=== PATIENT | female | born 1975 | race Caucasian/White ===

== ENCOUNTER → 2017-11-13 | Outpatient (CLI) | payer BC ==
[~2017-11-13] MED LIST: ALPR0.5T7 PO; HYDR25TA4 PO; METO-351 PO; NALT1TAB PO; PSEU60TA84 PO
--- NOTE | 2017-11-13 13:37 | Diagnostic Imaging Report ---
Indication: Routine screening. Comparison is made with prior exam from 10/17/2008. The current study was also evaluated with a Computer Aided Detection (CAD) system. Both breasts remain heterogeneously dense, limiting the sensitivity of mammography. The overall parenchymal pattern is stable. Intramammary lymph node upper outer left breast is noted. No spiculated mass or malignant appearing microcalcifications are seen. There are benign-appearing calcifications. The axillae are unremarkable. Impression: BI-RADS category 2. No mammographic features suspicious for malignancy are identified. ACR BI-RADS Category 2: Benign findings. Result letter will be mailed to the patient. Note: At least 10% of breast cancer is not imaged by mammography. Dictated by: Dictated on workstation # [id number]
== END ==
LOC: RAD 10:25
PROVIDERS: ATTEND Obstetrics & Gynecology
DX: Z12.31 Encounter for screening mammogram for malignant neoplasm of breast (principal)
CPT/HCPCS: 77067

== ENCOUNTER 2018-01-08 21:01 | Emergency (ER) | payer BC ==
[~2018-01-08] VITALS: Ht 160 cm; Wt 77.1 kg
[2018-01-08] MEDS ORDERED: ALPRAZolam 0.25 MG (XANAX) TAB PO ONE (21:50)
--- NOTE | 2018-01-08 21:50 | ED General ---
General Chief Complaint: Psych/Social Disorder Stated Complaint: BLOOD PRESSURE HIGH AND LOW,FEELS WEIRD,LIPS NUMB Nursing Triage Note: PT TO ED 5 W/ C/O NUMBNESS TO LIPS, [place] ET LOW BLOOD PRESSURE ONSET THIS AFTERNOON AFTER DRINKING A KARINA AT [facility]". PT REPORTS HX OF ANXIETY BUT STATES "I DON'T THINK THIS IS ANXIETY". Nursing Sepsis Screen: No Definite Risk History of Present Illness Date Seen by Provider: Jan 08, 2018 Time Seen by Provider: 21:30 Initial Comments 42-year-old female reports headache that began approximately 2 hours ago, she reports it is now resolved. Hypotension per her home monitor, 90s/50s. No chest pain, palpitations or vertigo. Numbness and tingling in her lips. Coldness in her hands. She has a history of anxiety, she was recently resumed on Zoloft because she was taking increased number of Xanax per day. She is also on metoprolol and Ambien. She got up very early this morning to drive to [place] and pick family up at the airport. She denies being under increased stress. She does report recent mild weight loss. She denies any illicit drug use. She does report having one karina today, she does not drink alcohol regularly. She denies any history of thyroid disorder. Timing/Duration: 1-3 Hours Severity: Mild Associated Systoms: No Chest Pain, No Cough, No Diaphoresis, Fever/Chills, Headaches, No Loss of Appetite, Malaise, No Nausea/Vomiting, No Rash, No Seizure , No Shortness of Air, No Syncope, No Weakness Allergies and Home Medications Allergies Coded Allergies: Penicillins (Verified Allergy, Unknown, 07/09/16) Home Medications Alprazolam 0.5 Mg Tablet, 0.5 MG PO TID PRN for ANXIETY, (Reported) Metoprolol Succinate 25 Mg Tab.er.24h, 25 MG PO DAILY Prescribed by: CANDICE ESPOSITO on 07/10/16 1228 Patient Home Medication List Home Medication List Reviewed: Yes Constitutional: see HPI, chills, malaise Respiratory: no symptoms reported, see HPI, No cough, No dyspnea on exertion, No short of breath Cardiovascular: no symptoms reported, see HPI, No palpitations, No syncope Gastrointestinal: no symptoms reported, see HPI Skin: change in color Past Aofvjeh-Gfwefr-Jocwrh Hx Patient Social History Alcohol Use: Occasionally Uses Recreational Drug Use: No Smoking Status: Never a Smoker Recent Foreign Travel: No Contact w/Someone Who Travel: No Recent Infectious Disease Expo: No Recent Hopitalizations: No Physical Abuse: No Sexual Abuse: No Mistreated: No Fear: No Surgeries History of Surgeries: Yes (LAP BAND, UTERINE ABLATION) Surgeries: Section, Tonsillectomy, Tubal Ligation Respiratory History of Respiratory Disorde: No Cardiovascular History of Cardiac Disorders: Yes Cardiac Disorders: Chronic Edema/Swelling, Hypertension Neurological History of Neurological Disord: No Reproductive System Hx Reproductive Disorders: No Sexually Transmitted Disease: No HIV/AIDS: No Female Reproductive Disorders: Denies [employer] History: Tubal Ligation Gastrointestinal History of Gastrointestinal Di: No (LAP BAND) Musculoskeletal History of Musculoskeletal Dis: No Endocrine History of Endocrine Disorders: No Cancer History of Cancer: No Psychosocial History of Psychiatric Problem: Yes Behavioral Health Disorders: Anxiety Suicide Risk Score: 0 Integumentary History of Skin or Integumenta: No Blood Transfusions History of Blood Disorders: No Family Medical History Significant Family History: No Pertinent Family Hx Physical Exam Vital Signs Vital Signs - First Documented 01/08/18 21:08 Temp 97.1 Pulse 95 Resp 20 B/P (MAP) 153/109 (124) Pulse Ox 98 O2 Delivery Room Air Capillary Refill : Less Than 3 Seconds General Appearance: No Apparent Distress, Anxious Eyes: Bilateral Eye Normal Inspection, Bilateral Eye PERRL, Bilateral Eye EOMI HEENT: PERRL/EOMI, TMs Normal, Normal ENT Inspection, Pharynx Normal Neck: Full Range of Motion, Normal Inspection, Non Tender, Supple Respiratory: Chest Non Tender, Lungs Clear, Normal Breath Sounds Cardiovascular: Regular Rate, Rhythm, No Edema, Normal Peripheral Pulses Gastrointestinal: Normal Bowel Sounds, Non Tender, Soft Back: Normal Inspection, No CVA Tenderness, No Vertebral Tenderness Extremity: Normal Capillary Refill, Normal Inspection, Normal Range of Motion, Non Tender, No Pedal Edema Neurologic/Psychiatric: Alert, Oriented x3, No Motor/Sensory Deficits, Normal Mood/Affect Skin: Warm/Dry, Erythema (to left cheek and upper chest, the patient reports this is normal on occurs when she is nervous.) Progress/Results/Core Measures Suspected Sepsis Recent Fever Within 48 Hours: No Infection Criteria Present: None New/Unexplained Altered Menta: No Sepsis Screen: No Definite Risk Sepsis Diagnosis: SIRS Temperature:97.1 Pulse: 95 Respiratory Rate: 20 Blood Pressure 153 /109 Mean: 124 Results/Orders My Orders Orders - ERNIE GRAVES Ekg Tracing (01/08/18 21:43) Alprazolam Tablet (Xanax Tablet) (01/08/18 21:50) Medications Given in ED Current Medications Medications Dose Ordered Sig/Luiz Route Start Time Stop Time Status Last Admin Dose Admin Alprazolam 0.5 mg ONCE ONCE PO 01/08/18 21:50 01/08/18 21:53 DC 01/08/18 21:57 0.5 MG Vital Signs/I&O Vital Sign - Last 12Hours 01/08/18 01/08/18 21:08 22:41 Temp 97.1 97.1 Pulse 95 74 Resp 20 13 B/P (MAP) 153/109 (124) 136/91 (124) Pulse Ox 98 99 O2 Delivery Room Air Room Air Capillary Refill : Less Than 3 Seconds Blood Pressure Mean: 124 Progress Note : Time: 21:30 Progress Note Initial evaluation completed recommended EKG and continuing to monitor. 2144 EKG normal, recommended trying Xanax 0.5 mg by mouth, patient agreed. 2214 patient reports anxiety has improved significantly since taking the Xanax. She reports decreased numbness in her lips. Denies any other complaints at this time. Discharge instructions and return precautions reviewed with her. ECG Initial ECG Impression Date: Jan 08, 2018 Initial ECG Impression Time: 21:43 Initial ECG Rate: 82 Initial ECG Rhythm: Normal Sinus Initial ECG Intervals: Normal Initial ECG Intervals VT 180, QRS T 82, QT 388, QTc 453. [place] P 58, QRS -10, T 21. Initial ECG Impression: Normal Initial ECG Comparisson: No Previous ECG Available Comment EKG reviewed with Dr. Hairston, concurred with evaluation Departure Impression Impression: Primary Impression: Anxiety Disposition: 01 HOME, SELF-CARE Condition: Improved Departure-Patient Inst. Decision time for Depature: 22:30 Referrals: REJI ALVARENGA MD (PCP/Family) Primary Care Physician Patient Instructions: Anxiety, Adult (DC), Panic Disorder (DC) Add. Discharge Instructions: Take all of your medication as directed by Dr. Alvarenga. Follow-up with Dr. Alvarenga's office early next week if symptoms are not improving. Take your Xanax at scheduled times as needed for early signs of anxiety. Consider trying yoga, meditation or walking for anxiety. Return to emergency department for chest pain, anxiety not controlled by medication, difficulty breathing, headache not relieved by your ibuprofen, or new problems. All discharge instructions reviewed with patient and/or family. Voiced understanding. Copy Copies To 1: REJI ALVARENGA MD, AMY ARNP Jan 08, 2018 21:50
[2018-01-08 22:41] VITALS: BP 136/91
== END 2018-01-08 22:40 | disposition home or self-care (01) ==
LOC: EDUNIT# 21:01 → ER 21:03
DX: F41.9 Anxiety disorder, unspecified (principal); I10 Essential (primary) hypertension; R60.9 Edema, unspecified; Z90.89 Acquired absence of other organs; Z87.59 Personal history of other complications of pregnancy, childbirth and the puerperium; Z98.51 Tubal ligation status; Z98.890 Other specified postprocedural states; Z88.0 Allergy status to penicillin
CPT/HCPCS: 93005; 99283

== ENCOUNTER → 2018-04-16 | Outpatient (CLI) | payer BC ==
--- NOTE | 2018-04-16 07:55 | Diagnostic Imaging Report ---
PROCEDURE: US Gallbladder. TECHNIQUE: Multiple real-time grayscale images were obtained over the right upper quadrant in various projections. INDICATION: Right upper quadrant pain. FINDINGS: The liver is normal in size without focal lesions. There is no biliary duct dilatation. The common bile duct measures 5 mm. There is no cholelithiasis, gallbladder wall thickening or pericholecystic fluid. Visualized portions of the pancreas are unremarkable. The right kidney is normal. There is no ascites. IMPRESSION: Unremarkable right upper quadrant ultrasound Dictated by: Dictated on workstation # [id number]
== END ==
LOC: RAD 06:43
DX: R10.11 Right upper quadrant pain (principal)
CPT/HCPCS: 76705

== ENCOUNTER → 2019-10-19 | Outpatient (CLI) | payer BC ==
[2019-10-19 14:18] VITALS: BP 134/86
--- NOTE | 2019-10-19 14:18 | Cardiology Stress Test Report ---
Stress Test Report Date of Procedure/Referring: Date of Procedure: Oct 19, 2019 PCP Berta Bowser Admitting Physician Manolo Alvarenga MD Baseline Heart Rate: 83 Baseline Blood Pressure: Blood Pressure Systolic: 134 Blood Pressure Diastolic: 86 Baseline EKG: Baseline EKG: Normal sinus rhythm Summary/Conclusion: Summary: In summary, the patient started exercising with a baseline heart rate, blood pressure and EKG mentioned above Patient was able to exercise for a total of 9 minutes on Nixon protocol, 10.3 METs Maximum heart rate 155 Maximum blood pressure 147/85 Stress EKG Minimal nondiagnostic changes Recovery EKG Return to baseline Conclusion: 1. Good exercise tolerance for a total of 9 minutes on Nixon protocol, 10.3 METs, achieving 88 percent of maximum expected heart rate 2. Minimal nondiagnostic EKG changes with exercise returned to baseline during recovery 3. No arrhythmia was noted CANDICE ESPOSITO MD Oct 19, 2019 14:18
== END ==
LOC: CARD 09:59
PROVIDERS: ATTEND Physician Assistant
DX: I20.9 Angina pectoris, unspecified (principal); I10 Essential (primary) hypertension; R00.2 Palpitations; R60.9 Edema, unspecified
CPT/HCPCS: 93017; 93306

== ENCOUNTER → 2020-04-05 | Outpatient (CLI) | payer BC ==
[~2020-04-05] MED LIST changes: -PSEU60TA84 PO; +PSEU60TA88 PO
--- NOTE | 2020-04-06 10:56 | Diagnostic Imaging Report ---
EXAM: Digital mammogram, bilateral screening. COMPARISON: This study was compared to the prior exam of 11/13/2017. There are no current complaints. FINDINGS: The fibroglandular tissue in both breasts is heterogeneously dense. This does limit the sensitivity of this exam. In the interval since the prior study, a group of microcalcifications has developed in the upper outer aspect of the right breast approximately 10 cm from the nipple. I would recommend that a compression/magnification view of these microcalcifications be obtained in the CC and ML projections so that they can be better characterized. The overall appearance of the breast does not appear to have changed significantly otherwise. There is no primary or secondary sign of malignancy noted. IMPRESSION: 1. Additional mammographic views of the right breast would be recommended for further study. ACR category 0. ACR BI-RADS Category 0: Incomplete. (Needs additional imaging evaluation). Result letter will be mailed to the patient. Note: At least 10% of breast cancer is not imaged by mammography. Dictated by: Dictated on workstation # [id number]
== END ==
LOC: RAD 15:29
PROVIDERS: ATTEND Nurse Practitioner Family
DX: Z12.31 Encounter for screening mammogram for malignant neoplasm of breast (principal)
CPT/HCPCS: 77063; 77067

== ENCOUNTER → 2020-04-18 | Outpatient (CLI) | payer BC ==
--- NOTE | 2020-04-18 14:27 | Diagnostic Imaging Report ---
INDICATION: Right breast calcifications. Patient presents for additional views. COMPARISON: Correlation is made with the screening study from 04/05/2020 and 11/13/2017. TECHNIQUE: Unilateral right 2D and 3D diagnostic mammography was performed with CAD. This includes magnification CC and ML views as well as conventional 90 degree lateral view. FINDINGS: The additional views show a cluster of microcalcifications in the upper outer aspect of the right breast at posterior depth. These have increased since the exam from 2018. There are several rounded calcifications; however, additional calcifications are more pleomorphic. No associated soft tissue mass is detected. IMPRESSION: Cluster of microcalcifications in the upper outer right breast at posterior depth, indeterminate. Tissue sampling is recommended. These would be amenable to a stereotactic biopsy approach. ACR BI-RADS Category 4: Suspicious abnormality. Result letter will be mailed to the patient. Note: At least 10% of breast cancer is not imaged by mammography. Dictated by: Dictated on workstation # [id number]
== END ==
LOC: RAD 13:48
PROVIDERS: ATTEND Nurse Practitioner Family
DX: N63.11 Unspecified lump in the right breast, upper outer quadrant (principal); R92.0 Mammographic microcalcification found on diagnostic imaging of breast
CPT/HCPCS: 77065; G0279

== ENCOUNTER → 2020-04-27 | Outpatient (CLI) | payer BC ==
[~2020-04-27] VITALS: Ht 160 cm; Wt 75.0 kg
[~2020-04-27] MED LIST changes: +LIDOCAINE 1% INJ 20 ML 20 ML VIAL INJ ONE
--- NOTE | 2020-04-27 11:58 | Diagnostic Imaging Report ---
Indication: Right breast calcifications. Patient presents for stereotactic biopsy. Patient is brought to the stereotactic suite placed in a chair in the sitting upright position. The right breast was positioned lateral medial. The subtle cluster microcalcifications in the upper outer aspect of the right breast posterior depth were stereotactically targeted. The lateral right breast was then prepped and draped in usual sterile fashion. A small amount of 1% lidocaine was utilized local anesthesia. A 8 gauge stereotactic needle was advanced into the right breast from a lateral medial approach and placed with its tip per stereotactic coordinates. A total of 4 core biopsies were obtained with the vacuum-assisted 8 gauge device. Specimen radiograph was obtained demonstrating numerous calcified lesions within the sample labeled #4. There are several small calcifications within the sample labeled #3 as well. Mild marker clip was then deployed. Needle was removed and hemostasis was obtained. Postprocedure 2D, CC and LM was performed. Marker clip in the upper outer right breast posterior depth is noted. All images were viewed on a dedicated workstation. IMPRESSION: Successful stereotactic biopsy of the cluster of microcalcifications upper outer right breast posterior depth, utilizing the 8 gauge vacuum-assisted device. Pathology results are currently pending. Dictated by: Dictated on workstation # [id number]
== END ==
LOC: RAD 09:23
PROVIDERS: ATTEND Nurse Practitioner Family
DX: N63.11 Unspecified lump in the right breast, upper outer quadrant (principal)
CPT/HCPCS: 19081; A4648

== ENCOUNTER 2020-09-25 09:53 | Outpatient (RCR) | payer BC ==
[~2020-09-25 09:53] MED LIST changes: -LIDOCAINE 1% INJ 20 ML 20 ML VIAL INJ ONE
== END 2020-10-16 | disposition home or self-care (01) ==
LOC: ONC 09:53
PROVIDERS: ATTEND Radiology Radiation Oncology
DX: D05.11 Intraductal carcinoma in situ of right breast (principal); I10 Essential (primary) hypertension; G47.00 Insomnia, unspecified; Z98.51 Tubal ligation status; Z90.89 Acquired absence of other organs; Z82.49 Family history of ischemic heart disease and other diseases of the circulatory system; Z98.890 Other specified postprocedural states
CPT/HCPCS: 77290; 77295; 77300; 77307; 77334; 77336; 77417; 99204; 99213